=== PATIENT | male | born 2000 | race Caucasian/White ===

== ENCOUNTER 2022-11-29 10:01 | Emergency (ER) | payer OTHER, BC, SELFPAY ==
[2022-11-29 10:10] VITALS: BP 131/66; PULSE 70; RESP 20; TEMP 36.8; O2SAT 98; BMI 24.3
--- NOTE | 2022-11-29 10:16 | HMH.EDGENADL ---
Discharge Plan Disposition Patient Disposition: Home, Self-Care Condition: Good Prescriptions Prescriptions: New ibuprofen [IBU] 800 mg tablet 800 mg PO Q8H PRN (Reason: pain) Qty: 20 0RF cephalexin 500 mg capsule 500 mg PO TID 7 Days Qty: 21 0RF Referrals Follow up/Referrals: Provider,Referral, [Primary Care Provider] - See instructions Activity Restrictions/Add. Instructions Additional Instructions/Restrictions: You were evaluated in the emergency department today. Please follow-up closely with your primary care provider for wound recheck. Keep your wound clean and dry. Do not submerge under any water. Do not use alcohol or peroxide on the wound. Your sutures will dissolve on their own. Apply the antibiotic ointment provided to you twice a day. 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 Take Tylenol and ibuprofen at home as needed for pain. Clinical Impressions Clinical Impression: Laceration of left ring finger with damage to nail Qualifiers: Encounter type: initial encounter Foreign body presence: without foreign body Qualified Code(s): S61.315A - Laceration without foreign body of left ring finger with damage to nail, initial encounter Instructions Patient Instructions: DI for Laceration Repair, DI for Nail Bed Injury Discharge ED Provider: Ely Thomas General Adult HPI General Chief complaint: Wound/Laceration Stated complaint: WC 11/29, left ring finger lac Time Seen by Provider: 11/29/22 10:06 Mode of Arrival: Ambulatory Source of Information: Patient Limitations: No Limitations Description of Symptoms (Recalled from ER Triage Doc. by RN): pt to ed c/o left ring finger laceration. pt states he cut his finger on a knife at work. pt reports being utd on a tetanus. History of Present Illness HPI narrative: This patient is a 22-year-old [id number] male who denies significant past medical history presenting to the emergency department for a laceration to the left ring finger. He reports that he did this while cutting onions just prior to arrival. He denies any other injuries. His last tetanus shot was in the last 5 years. No other concerns or complaints at this time. Related Data Previous Rx's Medication Instructions Recorded cephalexin 500 mg capsule 500 mg PO TID 7 days #21 caps 11/29/22 ibuprofen 800 mg tablet (IBU) 800 mg PO Q8H PRN pain #20 tabs 11/29/22 Allergies Allergy/AdvReac Type Severity Reaction Status Date / Time amoxicillin Allergy Verified 11/29/22 10:14 [facility] Disclaimer: The information contained in this section may have been updated after the patient was seen, as this information can be updated by other users. Social History Smoking Status: Never smoker alcohol intake: never current occupational status: employed Travel in the last 8 weeks: None ROS Obtained: Yes All systems reviewed & no additional complaints except as documented Physical Exam General General appearance: alert and in no apparent distress Head Head exam: atraumatic and normocephalic Eye Eye exam: Present normal appearance, PERRL and EOMI ENT ENT exam: Present normal exam, normal oropharynx, mucous membranes moist and normal external ear exam Neck Neck exam: Present normal inspection, full ROM and trachea midline; Absent tenderness Chest Chest inspection: Present normal inspection and symmetric chest wall rise; Absent tenderness Respiratory Respiratory exam: Present normal lung sounds bilaterally; Absent respiratory distress, wheezes, stridor or accessory muscle use Cardiovascular Cardiovascular exam: Present regular rate and normal rhythm Abdominal Exam Abdominal exam: Present soft; Absent distention, tenderness or guarding Extremities Exam Extremities exam: Present full ROM and normal capillary refill; Absent tenderness or edema Expanded Upper Extremity E
--- NOTE | 2022-11-29 10:45 | PC.NURSE ---
Checked on pt stated no needs at this time,call light at bs
[2022-11-29 11:48] VITALS: BP 129/78; PULSE 74; RESP 20; TEMP 36.8; O2SAT 97
== END 2022-11-29 11:49 | disposition home or self-care (01) ==
PROVIDERS: Emergency Provider Emergency Medicine
DX: S61.315A Laceration without foreign body of left ring finger with damage to nail, initial encounter (principal); W26.0XXA Contact with knife, initial encounter; Y99.0 Civilian activity done for income or pay
CPT/HCPCS: 12002; 99283